=== PATIENT | female | born 1995 | race Caucasian/White ===

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

== ENCOUNTER 2019-03-15 14:39 | Emergency (ER) | payer OTHER ==
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
--- NOTE | 2019-03-15 16:11 | RADIOLOGY REPORT (SQ) ---
EXAM DESCRIPTION: HAND RIGHT 3 VIEWS COMPLETED DATE/TIME: 03/15/2019 4:03 pm REASON FOR STUDY: dog bite 2nd MCP COMPARISON: None. EXAM PARAMETERS: NUMBER OF VIEWS: Three views. TECHNIQUE: AP, lateral and oblique radiographic images acquired of the right hand. LIMITATIONS: None. FINDINGS: MINERALIZATION: Normal. BONES: No acute fracture or dislocation. No worrisome bone lesions. JOINTS: No effusion. SOFT TISSUES: No significant soft tissue swelling. No radiopaque foreign body. OTHER: No other significant finding. IMPRESSION: NO FRACTURE. TECHNICAL DOCUMENTATION: JOB ID: [id number] [place]-72 2010 [employer]- All Rights Reserved Reading location - IP/workstation name: [email or web address]
--- NOTE | 2019-03-15 16:24 | RADIOLOGY REPORT (SQ) ---
EXAM DESCRIPTION: CHEST 2 VIEWS COMPLETED DATE/TIME: 03/15/2019 4:03 pm REASON FOR STUDY: hemoptysis COMPARISON: None. EXAM PARAMETERS: NUMBER OF VIEWS: two views TECHNIQUE: Digital Frontal and Lateral radiographic views of the chest acquired. RADIATION DOSE: NA LIMITATIONS: none FINDINGS: LUNGS AND PLEURA: No opacities, masses or pneumothorax. No pleural effusion. MEDIASTINUM AND HILAR STRUCTURES: No masses or contour abnormalities. HEART AND VASCULAR STRUCTURES: Heart normal size. No evidence for failure. BONES: No acute findings. HARDWARE: None in the chest. OTHER: No other significant finding. IMPRESSION: NO ACUTE RADIOGRAPHIC FINDING IN THE CHEST. TECHNICAL DOCUMENTATION: JOB ID: [id number] [place]-[id number] 2010 [employer]- All Rights Reserved Reading location - IP/workstation name: [email or web address]
[2019-03-15 17:05] VITALS: BP 122/58
== END 2019-03-15 17:02 | disposition home or self-care (01) ==
LOC: ER 14:39
DX: S61.210A Laceration without foreign body of right index finger without damage to nail, initial encounter (principal); S40.812A Abrasion of left upper arm, initial encounter; S40.811A Abrasion of right upper arm, initial encounter; W54.0XXA Bitten by dog, initial encounter; R53.1 Weakness; R04.2 Hemoptysis
CPT/HCPCS: 71046; 99283

== ENCOUNTER 2019-04-01 12:31 | Emergency (ER) | payer OTHER ==
[2019-04-01 13:12] VITALS: BP 114/64
[2019-04-01] MEDS ORDERED: ACETAMINOPHEN 325 MG TABLET PO ONE (13:35)
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
== END 2019-04-01 13:45 | disposition home or self-care (01) ==
LOC: ER 12:31
DX: O26.891 Other specified pregnancy related conditions, first trimester (principal); R51 Headache; V87.7XXA Person injured in collision between other specified motor vehicles (traffic), initial encounter; Z3A.09 9 weeks gestation of pregnancy
CPT/HCPCS: 99283